=== PATIENT | male | born 1995 | race Two or more races ===

== ENCOUNTER 2020-04-03 16:23 | Emergency (ER) | payer SELFPAY ==
[~2020-04-03] VITALS: Ht 177.8 cm; Wt 81.6 kg
[2020-04-03] MEDS ORDERED: HYDROcodone/Acetamin 7.5/325 tab ORAL ONE (16:30)
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
--- NOTE | 2020-04-03 17:11 | Diagnostic Imaging Report ---
EXAM: 2 view left tibia-fibula. History: Pain, injury Findings: Tibia and fibula are intact. No fracture is identified. Medialize portion of the ankle joint is unremarkable. Soft tissues are normal. Impression: 1. No acute findings.
[2020-04-03] MEDS ORDERED: Lidocaine 1% Plain 30 ml INJ ONE (17:15)
--- NOTE | 2020-04-03 17:22 | Diagnostic Imaging Report ---
EXAM: Three-view right knee Technique: AP oblique lateral views. FINDINGS: Small spurs seen in the level of the medial tibial spine and minimal at the medial compartment. Lateral compartment, femoral patellar compartment are unremarkable. Negative for suprapatellar joint effusion. Impression: 1. Mild medial compartment osteoarthritis. 2. Small spurs at the level of the medial tibial spine.
[2020-04-03] MEDS ORDERED: TYLENOL EXTRA500 MG ORAL (17:36)
--- NOTE | 2020-04-03 17:59 | NUR ---
ED Nurse Note: Crutches and LAYTON wrap provided.
--- NOTE | 2020-04-03 18:02 | NUR ---
ER DISCHARGE NOTE: Patient is cleared to be discharged per ERMD, pt is aox4, on room air, with stable vital signs. pt was given dc and prescription instructions, pt was able to verbalize understanding, pt id band removed. pt is able to ambulate with steady gait. pt took all belongings. Pt has crutches on discharge.
[2020-04-03 18:05] VITALS: BP 131/71
== END 2020-04-03 18:05 | disposition home or self-care (01) ==
LOC: EDBD 16:23 → EMR 18:02
DX: S80.11XA Contusion of right lower leg, initial encounter (principal); Y04.2XXA Assault by strike against or bumped into by another person, initial encounter; Y92.9 Unspecified place or not applicable
CPT/HCPCS: 73562; 73590; 99284; J2001